=== PATIENT | male | born 1995 | race Caucasian/White ===

== ENCOUNTER 2019-12-06 20:24 | Emergency (ER) | payer OTHER, SELFPAY ==
[2019-12-06 20:31] VITALS: BP 129/78; PULSE 70; RESP 15; TEMP 37.1; O2SAT 99; BMI 25.1
[2019-12-06 20:58] LABS: Prothrombin Time 12.1 SECONDS (10.1-12.7)
--- NOTE | 2019-12-06 20:59 | ED_ITS ---
HPI - Abdominal Pain General Chief Complaint: Abdominal Pain Stated Complaint: sharp abd pains, vomiting Time Seen by Provider: 12/06/19 20:56 Source: patient Mode of arrival: Family Vehicle Limitations: no limitations History of Present Illness HPI narrative: 24-year-old male nonsmoker with benign medical history presents with a chief complaint of a few days of colicky type generalized abdominal pain with episodes of nausea and vomiting. He denies any provocation or palliation of his pain. He denies any history of the same. He has had no abdominal surgeries. He denies radiation of his pain but states it seems to wander through his belly. He does admit to some decreased bowel movements. He has had a decreased appetite. He denies any fever, shaking chills or other. MD complaint: abdominal pain Onset (ago): day(s) Pain Consistency: intermittent and colicky Location: diffuse Severity: moderate Quality: cramping and aching Radiation: none Migration to: no migration Relieving factors: nothing Exacerbating factors: nothing Associated symptoms: nausea and vomiting Related Data Previous Rx's Medication Instructions Recorded ondansetron 4 mg PO TID-QID PRN #10 tab 12/06/19 Allergies Allergy/AdvReac Type Severity Reaction Status Date / Time No Known Drug Allergies Allergy Verified 05/25/19 13:59 Review of Systems Constitutional Constitutional: Denies chills, Denies fatigue, Denies fever(s), Denies frequent falls, Denies lethargy and Denies weakness Eyes Eyes: Denies change in vision, Denies eye discharge, Denies irritation and Denies loss of vision ENT Ears, Nose, Mouth, and Throat: Denies change in voice, Denies dizziness, Denies neck pain, Denies sore throat and Denies throat swelling Cardiovascular Cardiovascular: Denies chest pain, Denies irregular heart rhythm, Denies lightheadedness, Denies palpitations, Denies dyspnea, Denies dyspnea on exertion and Denies orthopnea Respiratory Respiratory: Denies cough, Denies dyspnea, Denies dyspnea on exertion and Denies wheezing Gastrointestinal Gastrointestinal: Reports abdominal pain, Denies change in bowel habits, Denies diarrhea, Reports nausea and Reports vomiting Genitourinary Genitourinary: Denies hematuria, Denies flank pain, Denies urinary incontinence and Denies urinary urgency Musculoskeletal Musculoskeletal: Denies back pain, Denies muscle weakness, Denies neck pain, Denies numbness and Denies tingling Integumentary/Breasts Skin/Breast: Denies pruritus, Denies erythema, Denies rash and Denies wounds Neurologic Neurologic: Denies behavioral changes, Denies confusion, Denies dizziness, Rell es frequent falls, Denies loss of vision, Denies numbness, Denies tingling and Denies weakness Psychiatric Psychiatric: Denies anxiety, Denies behavioral changes, Denies confusion, Denies depression, Denies homicidal ideation and Denies suicidal ideation Endocrine Endocrine: Denies fatigue, Denies flushing and Denies palpitations Hematologic/Lymphatic Hematologic/Lymphatic: Denies easy bruising Allergic/Immunologic Allergic/Immunologic: Denies urticaria, Denies throat swelling and Denies wheezing Patient History Social History Smoking Status: Current every day smoker Smoking Status: Current every day smoker alcohol intake frequency: a few times a week Alcohol type: beer and hard liquor Substance Use Type: marijuana Exam Narrative Exam Narrative: GENERAL: [24] year old patient appears stated age. Well- nourished, well-developed patient, in mild distress. HEAD: Atraumatic. Normocephalic. EYES: Pupils equal round and reactive. Extraocular motions intact. No scleral icterus. No injection or drainage. ENT: Nose without bleeding, purulent drainage. Throat without erythema, tonsillar hypertrophy or exudate. Airway patent. NECK: Trachea midline. Non tender CARDIOVASCULAR: Regular rate and rhythm without murmurs, gallops, or rubs. RESPIRATORY: Clear to auscultation. Breath sounds equal bilaterally. No wheezes, rales, or rhonchi. GASTROINTESTINAL: Abdomen soft, non-tender, nondistended. EXTREMITIES: No edema or joint tenderness. BACK: Nontender without deformity or crepitance. No flank tenderness. NEURO: AOx3. SKIN: No rash or erythema of visible areas Initial Vital Signs Initial Vital Signs: Vital Signs Temperature 98.7 F 12/06/19 20:31 Pulse Rate 70 12/06/19 20:31 Respiratory Rate 15 12/06/19 20:31 Blood Pressure 129/78 12/06/19 20:31 Pulse Oximetry 99 12/06/19 20:31 Course Orders Ordered: ED Orders 12/06/19 20:35 EKG-12 Lead Stat 12/06/19 20:45 Complete Blood Count AUTO DIFF Stat Comprehensive Metabolic Panel Stat Lipase Stat Partial Thromboplastin Time Stat Prothrombin Time INR Stat 12/06/19 21:11 Urine Microscopic Stat 12/06/19 22:21 XR acute abdomen series Stat Sodium Chloride (Normal Saline 0.9%) 1,000 mls @ 1,000 mls/hr IV BOLUS ONE Stop: 12/06/19 23:20 Last Admin: 12/06/19 22:35 Dose: 1,000 mls/hr Documented by: MCKENZIE Discontinued Medications Al Hydrox/Mg Hydrox/Simethicone 20 ml/ Lidocaine HCl 15 ml 0 ml PO NOW ONE Stop: 12/06/19 22:22 Last Admin: 12/06/19 22:35 Dose: 35 ml Documented by: MCKENZIE Ondansetron HCl (Zofran Odt Prepack) 1 bottle MISC SEEINSTR ONE Stop: 12/06/19 22:40 Pantoprazole Sodium (Protonix) 40 mg IV NOW ONE Stop: 12/06/19 22:22 Last Admin: 12/06/19 22:36 Dose: 40 mg Documented by: MKCENZIE Vital Signs Vital signs: Vital Signs - 8 hr 12/06/19 20:31 12/06/19 22:14 Temperature 98.7 F Pulse Rate 70 63 Respiratory Rate 15 19 Blood Pressure 129/78 Blood Pressure [Left Arm] 106/57 L Pulse Oximetry 99 97 MDM - Abdominal Pain Lab Data Result diagrams: 12/06/19 20:45 12/06/19 20:45 Labs: Lab Results 12/06/19 12/06/19 12/06/19 Range/Units 20:45 20:45 20:45 WBC 12.4 H (4.5-11.0) X10^3/uL RBC 4.73 (4.5-5.9) X10^6/uL Hgb 15.1 (13.5-17.5) g/dL Hct 42.9 (41-53) % MCV 90.7 (80-100) fL MCH 31.9 (26-34) PG MCHC 35.2 (30-36) % RDW 12.2 (11.6-14.8) % Plt Count 223 (150-400) X10^3/uL Neut % (Auto) 79.0 H (50-75) % Lymph % (Auto) 13.6 L (25-40) % [place] % (Auto) 5.2 (3-14) % Eos % (Auto) 1.6 L (2-4) % Baso % (Auto) 0.6 (0-2) % Neut # (Auto) 9800 H (6803-7291) /uL Lymph # (Auto) 1700 (3750-5211) /uL [place] # (Auto) 600 (0-900) /uL Eos # (Auto) 200 (0-450) /uL Baso # (Auto) 100 (0-100) /uL PT 12.1 (10.1-12.7) SECONDS INR 1.0 (0.9-1.3) APTT 32 (26.4-36.2) SECONDS Sodium 140 (137-145) mmol/L Potassium 3.8 (3.4-5.1) mmol/L Chloride 102 (98-107) mmol/L Carbon Dioxide 26 (22-32) mmol/L BUN 18 (9-20) mg/dL Creatinine 0.80 (0.66-1.25) mg/dL Estimated GFR > 60.0 (>60) mL/min BUN/Creatinine Ratio 22.5 H (6-22) Glucose 107 H (70-100) mg/dL Calcium 9.6 (8.4-10.2) mg/dL Total Bilirubin 0.5 (0.2-1.3) mg/dL AST 30 (17-59) IU/L ALT 21 (<50) IU/L Alkaline Phosphatase 53 (38-126) U/L Total Protein 7.8 (6.3-8.2) g/dL Albumin 4.9 (3.5-5.0) g/dL Globulin 2.9 (1.7-4.1) g/dL Albumin/Globulin Ratio 1.7 (1.0-2.8) Lipase 53 (23-300) U/L Urine RBC (0-5/HPF) Urine WBC (0-5/HPF) Ur Squamous Epith Cells (0-5/HPF) Urine Bacteria (None) Urine Mucus (Negative) Ur Culture Indicated? 12/06/19 Range/Units 21:11 WBC (4.5-11.0) X10^3/uL RBC (4.5-5.9) X10^6/uL Hgb (13.5-17.5) g/dL Hct (41-53) % MCV (80-100) fL MCH (26-34) PG MCHC (30-36) % RDW (11.6-14.8) % Plt Count (150-400) X10^3/uL Neut % (Auto) (50-75) % Lymph % (Auto) (25-40) % [place] % (Auto) (3-14) % Eos % (Auto) (2-4) % Baso % (Auto) (0-2) % Neut # (Auto) (5719-0591) /uL Lymph # (Auto) (3022-9888) /uL [place] # (Auto) (0-900) /uL Eos # (Auto) (0-450) /uL Baso # (Auto) (0-100) /uL PT (10.1-12.7) SECONDS INR (0.9-1.3) APTT (26.4-36.2) SECONDS Sodium (137-145) mmol/L Potassium (3.4-5.1) mmol/L Chloride (98-107) mmol/L Carbon Dioxide (22-32) mmol/L BUN (9-20) mg/dL Creatinine (0.66-1.25) mg/dL Estimated GFR (>60) mL/min BUN/Creatinine Ratio (6-22) Glucose (70-100) mg/dL Calcium (8.4-10.2) mg/dL Total Bilirubin (0.2-1.3) mg/dL AST (17-59) IU/L ALT (<50) IU/L Alkaline Phosphatase (38-126) U/L Total Protein (6.3-8.2) g/dL Albumin (3.5-5.0) g/dL Globulin (1.7-4.1) g/dL Albumin/Globulin Ratio (1.0-2.8) Lipase (23-300) U/L Urine RBC 0-1/hpf (0-5/HPF) Urine WBC 0-1/hpf (0-5/HPF) Ur Squamous Epith Cells 0-1 /hpf (0-5/HPF) Urine Bacteria None seen (None) Urine Mucus 1+ H (Negative) Ur Culture Indicated? Cult not indicated Point of care testing: Urine Dip Bedside Urine Glucose Negative Bedside Urine Bilirubin + 1 Bedside Urine Ketone +/- 5 Urine Specific [place] 1.010 Bedside Urine Occult Blood - Negative Bedside Urine pH 8.0 Bedside Urine Protein +/- 15 Bedside Urine Urobilinogen +/- 1mg Bedside Urine Nitrite - Negative Bedside Urine Leukocytes - Negative Esterase Imaging Data Abdominal x-ray: My Impression: non obstructive bowel gas pattern MDM Narrative Medical decision making narrative: Multiple etiologies for patient's symptoms considered including: [viral intestinal infection vs. bowel obstruction vs. biliary disease (less likely given lack of lab findings and location of pain)] Patient's symptoms improved or duration of stay with above-stated therapies. Findings and discharge diagnosis discussed with patient/family followed by verbalization of understanding Return precautions discussed with patient/family whom verbalize understanding. Discharge Plan Departure Patient Disposition: Home Clinical Impression: Abdominal pain Qualifiers: Abdominal location: generalized Qualified Code(s): R10.84 - Generalized abdominal pain Instructions: DI for Abdominal Pain-Adult Activity Restrictions/Additional Instructions: *You have been diagnosed with [ abdominal pain, non-specific gas pattern ] *What to do: *Take medications as directed including over the counter Maalox, Simethicone (Gas-X) and prescription nausea medicine *Follow up with your primary care provider in 2-3 days, call for an appointment. Let them know you were seen in the Emergency Department and that we ask that you be seen in follow up *Return to ER if you should have any new, worsening or concerning symptoms 1. Drink plenty of fluids with frequent small sips. 2. For the next 24 hours a clear liquid diet is advised. After that please em ploy a brat diet which would include bananas, rice, apples, toast. 3. Please take medications as directed. 4. Please follow-up with your doctor in the next 1-2 days. Call the office for an appointment. 5. Please return to the emergency Department for any worsening or persistent symptoms, such as increasing pain or fever. Prescriptions: New ondansetron 4 mg tablet,disintegrating 4 mg PO TID-QID PRN (Reason: nausea and vomiting) Qty: 10 RF: 0
[2019-12-06 21:01] LABS: Add Manual Diff / Slide Review NO; Basophils Absolute Auto 100 /uL (0-100); Basophils Percent Auto 0.6 % (0-2); Eosinophils Absolute Auto 200 /uL (0-450); Eosinophils Percent Auto 1.6 % (2-4); Hematocrit 42.9 % (41-53); Hemoglobin 15.1 g/dL (13.5-17.5); Lymphocytes Absolute Auto 1700 /uL (1100-4500); Lymphocytes Percent Auto 13.6 % (25-40); Mean Corpuscular HGB Conc 35.2 % (30-36); Mean Corpuscular Hemoglobin 31.9 PG (26-34); Mean Corpuscular Volume 90.7 fL (80-100); Monocytes Absolute Auto 600 /uL (0-900); Monocytes Percent Auto 5.2 % (3-14); Neutrophils Absolute Auto 9800 /uL (1500-7000); PTT Partial Thromboplastin Tim 32 SECONDS (26.4-36.2); Platelet Count 223 X10^3/uL (150-400); Red Blood Cell Count 4.73 X10^6/uL (4.5-5.9); Red Cell Distribution Width 12.2 % (11.6-14.8); White Blood Cell Count 12.4 X10^3/uL (4.5-11.0)
[2019-12-06 21:03] LABS: Alanine Aminotransferase 21 IU/L (<50); Albumin 4.9 g/dL (3.5-5.0); Albumin Globulin Ratio 1.7 (1.0-2.8); Alkaline Phosphatase 53 U/L (38-126); Aspartate Aminotransferase 30 IU/L (17-59); BUN Creatinine Ratio 22.5 (6-22); Bilirubin Total 0.5 mg/dL (0.2-1.3); Blood Urea Nitrogen 18 mg/dL (9-20); Calcium 9.6 mg/dL (8.4-10.2); Carbon Dioxide 26 mmol/L (22-32); Chloride 102 mmol/L (98-107); Estimated Glomerular Filt Rate > 60.0 mL/min (>60); Globulin 2.9 g/dL (1.7-4.1); Glucose 107 mg/dL (70-100); HEMOLYSIS 16 (0-50); Lipase 53 U/L (23-300); Potassium 3.8 mmol/L (3.4-5.1); Sodium 140 mmol/L (137-145); Total Protein 7.8 g/dL (6.3-8.2)
[2019-12-06 21:29] LABS: Bacteria Urine None Seen
[2019-12-06 21:37] LABS: Culture Indicated Urine Cult Not Indicated; Mucus Urine 1+ (Negative); RBC Urine 0-1/HPF (0-5/HPF); Squamous Epithelial Cell Urine 0-1 /HPF (0-5/HPF); WBC Urine 0-1/HPF (0-5/HPF)
[2019-12-06 22:14] VITALS: BP 106/57; PULSE 63; RESP 19; O2SAT 97
--- NOTE | 2019-12-06 22:21 | DI.RAD.S_ITS ---
PROCEDURE: XR ACUTE ABDOMEN SERIES INDICATIONS: Abdominal pain TECHNIQUE: One view chest and two views of the abdomen were acquired. COMPARISON: None. FINDINGS: Surgical changes and devices: None. Chest: Lungs are clear. Heart size is normal. No pleural effusions. No pneumoperitoneum. Abdomen: Bowel gas pattern is nonspecific with scattered air fluid levels. No suspicious calcifications. Visualized solid organ contours appear normal. Bones: No suspicious bony lesions. IMPRESSION: Nonspecific bowel gas pattern. If the patient's symptoms persist or worsen, then CT scan abdomen/pelvis should be considered for further evaluation. Dictated by: Aliya Cortes MD, PhD on 12/07/2019 at 8:22 Approved by: Aliya Cortes MD, PhD on 12/07/2019 at 8:23
[2019-12-06] MEDS: MAG HYDROX/ALUMINUM/SIMETH SUS 20 ML, LIDOCAINE VISCOUS 2% 15 ML PO (22:35)
[2019-12-06] MEDS: SODIUM CHLORIDE 0.9% 1,000 ML 1000 ML IV (22:35)
[2019-12-06] MEDS: PANTOPRAZOLE 40 MG VIAL IV (22:36)
[2019-12-06 23:05] VITALS: BP 101/62; PULSE 59; RESP 15; O2SAT 98
== END 2019-12-06 23:36 | disposition home or self-care (01) ==
PROVIDERS: Emergency Provider Emergency Medicine
DX: R10.84 Generalized abdominal pain (principal)
CPT/HCPCS: 36415; 74022; 80053; 81003; 81015; 83690; 85025; 85610; 85730; 96361; 96374; 99284; C9113

== ENCOUNTER 2020-03-31 09:54 | Emergency (ER) | payer OTHER, SELFPAY ==
--- NOTE | 2020-03-31 09:58 | ED.GENADULT ---
HPI - General Adult General Chief complaint: Upper Respiratory Symptoms Stated complaint: stuffy nose possible allergies Time Seen by Provider: 03/31/20 09:58 Source: patient Mode of arrival: Ambulatory Limitations: no limitations History of Present Illness HPI narrative: 24-year-old male here for evaluation of sinus congestion, sneezing and coughing. He states that he feels like he has allergies. Has been on [id number] allergy medications without any improvement. He has missed the past couple days of work. He told his company about the symptoms that he is having and he/the company was concerned about COVID-19. Patient is here for COVID-19 test. He reports no shortness of breath. No coughing. No fevers. No recent travel. No known sick contacts. Related Data Previous Rx's Medication Instructions Recorded ondansetron 4 mg PO TID-QID PRN #10 tab 12/06/19 Allergies Allergy/AdvReac Type Severity Reaction Status Date / Time No Known Drug Allergies Allergy Verified 03/31/20 10:27 Review of Systems Constitutional Constitutional: Denies chills, Denies fever(s) and Denies headache(s) ENT Ears, Nose, Mouth, and Throat: Denies vertigo, Denies dizziness, Denies headache(s), Reports sinus pressure and Denies sore throat Cardiovascular Cardiovascular: Denies chest pain Respiratory Respiratory: Denies cough Gastrointestinal Gastrointestinal: Denies abdominal pain, Denies diarrhea and Denies nausea Integumentary/Breasts Skin/Breast: Denies lesions and Denies rash Neurologic Neurologic: Denies behavioral changes, Denies vertigo, Denies dizziness and Denies headache(s) Psychiatric Psychiatric: Denies behavioral changes Hematologic/Lymphatic Hematologic/Lymphatic: Denies easy bleeding and Denies easy bruising Patient History Medical History Healthy adult (Acute) Social History Smoking Status: Current every day smoker Smoking Status: Current every day smoker alcohol intake frequency: a few times a week Alcohol type: beer and hard liquor Substance Use Type: marijuana Exam Const General: cooperative and comfortable HENMT Ears: TM normal on the right and other (Left TM obscured by cerumen) Nose: external nose normal Mouth: oral mucosae normal Teeth and gingiva: dentition normal Resp Effort & Inspection: normal respiratory effort Auscultation: clear to auscultation bilaterally Cardio Rate: regular rate Rhythm: regular rhythm Skin Lesions: no lesions Rashes: no rashes Extrem General: normal to inspection and capillary refill normal Medical Decision Making MDM Narrative Medical decision making narrative: Informed patient be happy to test him for COVID-19 however this test does take 2-5 days to resolved. Informed him that he should isolate himself from others until the results came back. We will call for with positive a negative results. Patient was given return precautions. He expressed understanding and agreement. Discharge Plan Departure Patient Disposition: Home Clinical Impression: Congestion of nasal sinus Instructions: DI for Nasal Congestion Activity Restrictions/Additional Instructions: You were tested for COVID-19 today. This test takes anywhere from 2-5 days to results. We will call you for any positive or negative results. Until then recommend that you isolate yourself from others and wash your hands frequently. Contact her primary provider for follow-up. Prescriptions: No Action ondansetron 4 mg tablet,disintegrating 4 mg PO TID-QID PRN (Reason: nausea and vomiting) Qty: 10 RF: 0 Stand Alone Forms: Work Release Note
[2020-03-31 10:05] VITALS: BP 134/87; PULSE 81; RESP 18; TEMP 36.9; O2SAT 99; BMI 26.9
[2020-03-31 11:05] VITALS: BP 120/66; PULSE 75; RESP 16; O2SAT 99
[2020-04-01 15:56] LABS: COVID19 Sendout NOT DETECTED (Not Detect)
== END 2020-03-31 11:06 | disposition home or self-care (01) ==
PROVIDERS: Emergency Provider Emergency Medicine
DX: Z03.818 Encounter for observation for suspected exposure to other biological agents ruled out (principal); R09.81 Nasal congestion
CPT/HCPCS: 87635; 99281; 99282

== ENCOUNTER → 2020-08-12 11:27 | Outpatient (CLI) | payer OTHER, SELFPAY ==
[2020-08-13 14:45] LABS: COVID19 Sendout Not Detected (Not Detect)
== END ==
PROVIDERS: Visit Provider Nurse Practitioner
DX: Z11.59 Encounter for screening for other viral diseases (principal)
CPT/HCPCS: 87635

== ENCOUNTER 2021-08-26 16:23 | Emergency (ER) | payer OTHER, SELFPAY ==
[2021-08-26 16:38] VITALS: BP 136/74; PULSE 92; RESP 18; TEMP 37.3; O2SAT 96; BMI 25.1
[2021-08-26 16:58] LABS: COVID19 -Nasal RAPID POSITIVE (Negative)
[2021-08-26 17:02] VITALS: PULSE 90; O2SAT 96
[2021-08-26 17:30] VITALS: BP 123/81; PULSE 96; O2SAT 97
--- NOTE | 2021-08-26 17:59 | ED_ITS ---
HPI - URI/Sore Throat <CESAR Hsu - Last Filed: 08/26/21 18:04> General Chief Complaint: Upper Respiratory Symptoms Stated Complaint: Wheezy, congestion clear x7 days Time Seen by Provider: 08/26/21 16:41 Source: patient Mode of arrival: Ambulatory Limitations: no limitations History of Present Illness HPI Narrative: The patient is a 25-year-old male everyday smoker who presents with a chief complaint of nasal congestion, cough and transient low-grade fevers for 1 week. Patient states he has not vaccinated for COVID, does not know any specific contacts with anybody with COVID. States his daughter tested positive for RSV. Lives with his fiveritoe as well as 3 younger daughters. Denies any specific chest pain or shortness of breath, but feels ?short of breath with this mask.Denies any nausea vomiting or diarrhea. States he is coughing a lot, using DayQuil and NyQuil at home. Related Data Previous Rx's Medication Instructions Recorded sertraline 100 mg tablet 100 mg PO DAILY #90 tab 01/14/21 Allergies Allergy/AdvReac Type Severity Reaction Status Date / Time No Known Drug Allergies Allergy Verified 05/05/21 18:08 Review of Systems <CESAR Hsu - Last Filed: 08/26/21 18:04> Review of Systems Narrative: GENERAL: See HPI HEENT: Denies sinus pain, ear pain, sore throat, difficulty swallowing, dizziness. RESPIRATORY: See HPI CARDIOVASCULAR: Denies chest pain, palpitations, orthopnea, edema, GASTROINTESTINAL: Denies nausea, vomiting, abdominal pain, diarrhea, constipation, melena. : Denies dysuria, frequency, incontinence, hematuria, urinary retention. MUSCULOSKELETAL: denies weakness, joint pain, or bony pain SKIN: Denies rash, skin lesions, or other NEUROLOGIC: Denies weakness, headache, numbness, change in speech, confusion, seizures, incoordination. PSYCHIATRIC: No concerning psychosocial issues. 12 point review of systems is negative except for those stated above Patient History <CESAR Hsu - Last Filed: 08/26/21 18:04> Medical History (Updated 08/26/21 @ 17:43 by CESAR Hsu) Anxiety (~2014) Chicken pox Depression (~2014) Fractures (~2010) Healthy adult Well adult exam Family History (Updated 12/27/20 @ 20:52 by Marilee River) Father Sleep apnea Mental health problem Mother Anxiety Hypertension Mental health problem Grandfather History of heart disease Hypertension Hyperlipidemia Stroke History of blood clots Social History Smoking Status: Current every day smoker Smoking Status: Current every day smoker tobacco type: vaping alcohol intake frequency: holidays/special occasions only Alcohol type: beer and hard liquor Substance Use Type: marijuana Exam <CONRADO Hsu-BC - Last Filed: 08/26/21 18:04> Narrative Exam Narrative: GENERAL: This is a well-nourished, well-developed patient, in no acute distress HEAD: Atraumatic. Normocephalic. No temporal or scalp tenderness. EYES: Pupils equal round and reactive. Extraocular motions intact. No scleral icterus. No injection or drainage. ENT: Nose without bleeding, purulent drainage or septal hematoma. Throat without erythema, tonsillar hypertrophy or exudate. Uvula midline. Airway patent. Cerumen impaction noted left ear canal, right TM pearly kemp NECK: Trachea midline. No JVD or lymphadenopathy. Supple, nontender, no meningeal signs. CARDIOVASCULAR: Regular rate and rhythm RESPIRATORY: Clear to auscultation. Breath sounds equal bilaterally. No wheezes, rales, or rhonchi. Occasional cough. GASTROINTESTINAL: Abdomen soft, non-tender, nondistended. No hepato- splenomegaly, or palpable masses. No guarding. NEURO: AOx3. SKIN: No rash or erythema. Initial Vital Signs Initial Vital Signs: Vital Signs Temperature 99.1 F 08/26/21 16:38 Pulse Rate 92 H 08/26/21 16:38 Respiratory Rate 18 08/26/21 16:38 Blood Pressure 136/74 08/26/21 16:38 Pulse Oximetry 96 08/26/21 16:38 <Facundo Barone DO - Last Filed: 08/26/21 18:15> Initial Vital Signs Initial Vital Signs: Vital Signs Temperature 99.1 F 08/26/21 16:38 Pulse Rate 92 H 08/26/21 16:38 Respiratory Rate 18 08/26/21 16:38 Blood Pressure 136/74 08/26/21 16:38 Pulse Oximetry 96 08/26/21 16:38 Scores <Diane CESAR Martin - Last Filed: 08/26/21 18:04> GCS Zillah coma scale eye opening: Spontaneous [place] coma scale verbal response: Orientated Ellen coma scale motor response: Obey commands Ellen coma scale total score: 15 <Facundo OreillyDO americo - Last Filed: 08/26/21 18:15> GCS Ellen coma scale total score: 15 Course <Diane CESAR Martin - Last Filed: 08/26/21 18:04> Orders Ordered: ED Orders 08/26/21 16:50 COVID19 -Nasal swab/Pre-Proc Stat Vital Signs Vital signs: Vital Signs - 8 hr 08/26/21 16:38 08/26/21 17:02 08/26/21 17:30 Temperature 99.1 F Pulse Rate 92 H 90 96 H Respiratory Rate 18 Blood Pressure 136/74 123/81 Pulse Oximetry 96 96 97 <Facundo OreillyDO americo - Last Filed: 08/26/21 18:15> Orders Ordered: ED Orders 08/26/21 16:50 COVID19 -Nasal swab/Pre-Proc Stat Vital Signs Vital signs: Vital Signs - 8 hr 08/26/21 16:38 08/26/21 17:02 08/26/21 17:30 Temperature 99.1 F Pulse Rate 92 H 90 96 H Respiratory Rate 18 Blood Pressure 136/74 123/81 Pulse Oximetry 96 96 97 MDM - URI/Sore Throat <Diane CESAR Martin - Last Filed: 08/26/21 18:04> Lab Data Labs: Lab Results 08/26/21 Range/Units 16:50 SARS-CoV-2 (PCR) Positive H (Negative) MDM Narrative Medical decision making narrative: The patient is a 25-year-old unvaccinated male who presents with a chief complaint of cough and congestion. He test positive for COVID today. I discussed at length self quarantine, wearing masks etcetera I gave him a work note for 10 days from today. He is oxygenating well at 96-97% room air. He adamantly declines interested vaccination adamantly declines the idea of monoclonal antibodies as they are investigational at this point. I discussed at length discussing is positive diagnosis, quarantine at home etcetera discussed coming back to the ER for acute concerns. Patient has no questions or concerns upon discharge states understanding return precautions as well as follow-up care. He has been hemodynamically stable nontoxic throughout stay in the ER. He is oxygenating well, has go lung sounds, so will hold off on chest x-ray at this point time. <Facundo Barone DO - Last Filed: 08/26/21 18:15> Lab Data Labs: Lab Results 08/26/21 Range/Units 16:50 SARS-CoV-2 (PCR) Positive H (Negative) Discharge Plan Departure Patient Disposition: Home Clinical Impression: COVID-19 Instructions: DI for COVID-19 (Suspected or Confirmed ), How to Care for Someone with COVID-19, COVID-19: Testing and Tracing, Can COVID-19 be prevented? Activity Restrictions/Additional Instructions: Thank you for trusting us with your care today. As discussed, you tested positive for COVID-19. Please rest and push fluids. Please isolate at home. Please quarantine. Please wash your hands and high touch services, please wear a mask. You have to self quarantine for at least 10 days from today. It is reassuring that your oxygen level is good. Please use [id number] remedies as needed and able for symptom control. Please back to the emergency department for any acute concerns. Prescriptions: No Action sertraline 100 mg tablet 100 mg PO DAILY Qty: 90 RF: 3 Stand Alone Forms: Work Release Note <Facundo Barone DO - Last Filed: 08/26/21 18:15> Cosign ED Attending Cosignature Attestation: Dr Barone Co-Sign Statement: I was available for consultation during this patient's emergency department visit. This chart is signed by myself for administrative purposes only. I did not have direct contact with this patient during this visit. They were seen independently by the APC.
--- NOTE | 2021-08-26 18:20 | PC.NURSE ---
Pt called here to tell us that his girlfriend's employer is telling her that she needs to come to work. I explained that we can't control what her employer says and to follow the cdc guidlines. He also said how are we suppose to stop a pandemic if she is expected to go to work? I instructed him that the first step in helping to stop this is to get vaccinated. Pt said he would not get vaccinated. Pt once again asked me about his girlfriend having to go to work which I told him I can't control what her work is telling her. I repeated this to him multiple times. Pt began raising his voice at me and cussing which I then hung up on him after saying I will not be talked to like that. Pts girlfriend then called here. She immediately began raising her voice and cussing at me on the phone. Danna Martin who was sitting next to me was able to hear her through the phone. Pt was mad that we wouldn't give her advice over the phone,which I once again told her that I can't give her advice over the phone and I have no control over what her work is requiring her to do. She then said Your going to fucking tell me you can't fucking tell me what to do,we have 4 other people living in this house that have been exposed. I instructed her to follow the instructions that the patient was given, look up online at what the cdc recommends. She began yelling louder,cussing at me and refused to listen to anything that she was intructed to do. I then told her that I would not listen to this and hung up the phone.
--- NOTE | 2021-08-26 18:28 | PC.NURSE ---
answered ed phone and pts girlfriend yelled that she didnt appreciate being hung up on and medical advice given arent we a hospital she stated i just want to know if i need to quarantine my kids or myself and no one will answer my question am i supposed to work? explained that legally I cannot give medical advice over the phone but that if she had close contact with a covid positive person we advise contacting primary care or getting tested. female then screamed well then you better not ever ask my boyfriend to get vaccinated again if you do Ill tejal you all pt continued to scream Ill fucking tejal you you useless people while trying to answer Im sorry legally we cannot....Phone call disconnected from callers end
== END 2021-08-26 17:48 | disposition home or self-care (01) ==
PROVIDERS: Emergency Medicine; Emergency Provider Nurse Practitioner Family
DX: U07.1 COVID-19 (principal)
CPT/HCPCS: 87635; 99281; 99282; C9803

== ENCOUNTER 2023-03-16 06:07 | Emergency (ER) | payer OTHER, SELFPAY ==
[2023-03-16 06:11] VITALS: BP 121/77; PULSE 75; RESP 18; TEMP 36.6; O2SAT 98; BMI 25.1
--- NOTE | 2023-03-16 06:27 | ED_ITS ---
HPI - General Adult <Facundo Barone DO - Last Filed: 03/16/23 17:56> General Chief complaint: Abdominal Pain Stated complaint: throwing up, possible stomach ulcer Time Seen by Provider: 03/16/23 06:09 Source: patient and family Mode of arrival: Ambulatory History of Present Illness HPI narrative: Patient is a 27-year-old male who is here for evaluation of 2 days vomiting and upper abdominal pain and also diarrhea. Patient states that he has issues with upper abdominal pain in the past. He has been here in the emergency department in the past. Received what sounds like a GI cocktail which did help some of his symptoms however he is not seen his primary doctor or a GI doctor. He is not currently on any heartburn for acid related medications. He states 2 nights ago he woke up in the middle of the night and had vomiting and has also continued diarrhea. That happened again last evening which is what brought him here to the emergency department today. Related Data Previous Rx's Medication Instructions Recorded bupropion HCl 300 mg 24 hr tablet, 300 mg PO QAM #90 tabs 11/16/22 extended release famotidine 40 mg tablet (Pepcid) 40 mg PO DAILY #30 tabs 03/16/23 Allergies Allergy/AdvReac Type Severity Reaction Status Date / Time No Known Drug Allergies Allergy Verified 05/05/21 18:08 Review of Systems <Facundo Barone DO - Last Filed: 03/16/23 17:56> Constitutional Constitutional: Reports system reviewed and no additional complaints, except as documented Gastrointestinal Gastrointestinal: Reports system reviewed and no additional complaints, except as documented Genitourinary Genitourinary: Reports system reviewed and no additional complaints, except as documented Musculoskeletal Musculoskeletal: Reports system reviewed and no additional complaints, except as documented Integumentary/Breasts Skin/Breast: Reports system reviewed and no additional complaints, except as documented Patient History <Facundo Barone DO - Last Filed: 03/16/23 17:56> Medical History Anxiety (~2014) Chicken pox Depression (~2014) Fractures (~2010) Healthy adult Well adult exam Family History Father Sleep apnea Mental health problem Mother Anxiety Hypertension Mental health problem Grandfather History of heart disease Hypertension Hyperlipidemia Stroke History of blood clots Social History Smoking Status: Current every day smoker Smoking Status: Current every day smoker tobacco type: vaping alcohol intake frequency: holidays/special occasions only Alcohol type: beer and hard liquor Substance Use Type: marijuana Exam <Facundo Barone DO - Last Filed: 03/16/23 17:56> Initial Vital Signs Initial Vital Signs: Vital Signs Temperature 98 F 03/16/23 06:11 Pulse Rate 75 03/16/23 06:11 Respiratory Rate 18 03/16/23 06:11 Blood Pressure 121/77 03/16/23 06:11 Pulse Oximetry 98 03/16/23 06:11 Oxygen Delivery Method Room Air 03/16/23 06:11 Const General: cooperative, comfortable and No ill appearing HENMT Head: normal to inspection and normocephalic Resp Effort & Inspection: normal respiratory effort Auscultation: clear to auscultation bilaterally Cardio Rate: regular rate Rhythm: regular rhythm GI Inspection: normal to inspection and non-distended Palpation: soft, No firm and No tender Skin General: no rashes or lesions noted Neuro General: patient alert, patient awake and moves all extremities Extrem General: capillary refill normal <Diane Tony DO - Last Filed: 03/16/23 08:21> Initial Vital Signs Initial Vital Signs: Vital Signs Temperature 98 F 03/16/23 06:11 Pulse Rate 75 03/16/23 06:11 Respiratory Rate 18 03/16/23 06:11 Blood Pressure 121/77 03/16/23 06:11 Pulse Oximetry 98 03/16/23 06:11 Oxygen Delivery Method Room Air 03/16/23 06:11 Course <Facundo Barone DO - Last Filed: 03/16/23 17:56> Orders Ordered: Discontinued Medications Al Hydrox/Mg Hydrox/Simethicone (Mag Hydrox/Alum/Simeth 30 Ml Udc) 30 ml PO NOW ONE Stop: 03/16/23 06:52 Last Admin: 03/16/23 06:59 Dose: 30 ml Documented By: GC Al Hydrox/Mg Hydrox/Simethicone 20 ml/ Lidocaine HCl 15 ml 0 ml PO NOW ONE Stop: 03/16/23 06:25 Last Admin: 03/16/23 07:30 Dose: Not Given Documented By: NR Sodium Chloride (Normal Saline 0.9%) 1,000 mls @ 1,000 mls/hr IV BOLUS ONE Stop: 03/16/23 07:23 Last Infusion: 03/16/23 07:30 Dose: 0 mls/hr Documented By: Admin: 03/16/23 06:35 Dose: 1,000 mls/hr Documented By: SB Pantoprazole Sodium (Pantoprazole 40 Mg Vial) 40 mg IV NOW ONE Stop: 03/16/23 06:25 Last Admin: 03/16/23 06:37 Dose: 40 mg Documented By: SB Vital Signs Vital signs: Vital Signs - 8 hr 03/16/23 06:11 Temperature 98 F Pulse Rate 75 Respiratory Rate 18 Blood Pressure 121/77 Pulse Oximetry 98 Oxygen Delivery Method Room Air <Diane Tony DO - Last Filed: 03/16/23 08:21> Orders Ordered: Discontinued Medications Al Hydrox/Mg Hydrox/Simethicone (Mag Hydrox/Alum/Simeth 30 Ml Udc) 30 ml PO NOW ONE Stop: 03/16/23 06:52 Last Admin: 03/16/23 06:59 Dose: 30 ml Documented By: JOSE MARIA Al Hydrox/Mg Hydrox/Simethicone 20 ml/ Lidocaine HCl 15 ml 0 ml PO NOW ONE Stop: 03/16/23 06:25 Last Admin: 03/16/23 07:30 Dose: Not Given Documented By: NR Sodium Chloride (Normal Saline 0.9%) 1,000 mls @ 1,000 mls/hr IV BOLUS ONE Stop: 03/16/23 07:23 Last Infusion: 03/16/23 07:30 Dose: 0 mls/hr Documented By: Admin: 03/16/23 06:35 Dose: 1,000 mls/hr Documented By: FRANCESCA Pantoprazole Sodium (Pantoprazole 40 Mg Vial) 40 mg IV NOW ONE Stop: 03/16/23 06:25 Last Admin: 03/16/23 06:37 Dose: 40 mg Documented By: FRANCESCA Vital Signs Vital signs: Vital Signs - 8 hr 03/16/23 06:11 Temperature 98 F Pulse Rate 75 Respiratory Rate 18 Blood Pressure 121/77 Pulse Oximetry 98 Oxygen Delivery Method Room Air Medical Decision Making <Facundo Barone DO - Last Filed: 03/16/23 17:56> Lab Data 03/16/23 06:34 03/16/23 06:34 Labs: Lab Results 03/16/23 03/16/23 Range/Units 06:34 06:34 WBC 8.1 (4.5-11.0) X10^3/uL RBC 4.80 (4.5-5.9) X10^6/uL Hgb 15.2 (13.5-17.5) g/dL Hct 42.8 (41-53) % MCV 89.1 (80-100) fL MCH 31.7 (26-34) PG MCHC 35.6 (30-36) % RDW 12.7 (11.6-14.8) % Plt Count 207 (150-400) X10^3/uL Neut % (Auto) 83.1 H (50-75) % Lymph % (Auto) 7.8 L (25-40) % Dickinson % (Auto) 7.6 (3-14) % Eos % (Auto) 0.9 L (2-4) % Baso % (Auto) 0.6 (0-2) % Neut # (Auto) 6800 (2751-0423) /uL Lymph # (Auto) 600 L (4155-9884) /uL Dickinson # (Auto) 600 (0-900) /uL Eos # (Auto) 100 (0-450) /uL Baso # (Auto) 0 (0-100) /uL Sodium 139 (137-145) mmol/L Potassium 3.8 (3.4-5.1) mmol/L Chloride 101 (98-107) mmol/L Carbon Dioxide 27 (22-32) mmol/L BUN 18 (9-20) mg/dL Creatinine 1.01 (0.66-1.25) mg/dL Estimated GFR > 60 (>60) mL/min BUN/Creatinine Ratio 17.8 (6-22) Glucose 120 H (70-100) mg/dL Calcium 9.6 (8.4-10.2) mg/dL Total Bilirubin 1.2 (0.2-1.3) mg/dL AST 40 (17-59) IU/L ALT 44 (<50) IU/L Alkaline Phosphatase 66 (38-126) U/L Total Protein 8.1 (6.3-8.2) g/dL Albumin 5.0 (3.5-5.0) g/dL Globulin 3.1 (1.7-4.1) g/dL Albumin/Globulin Ratio 1.6 (1.0-2.8) Lipase 45 (23-300) U/L MDM Narrative Medical decision making narrative: Patient's vomiting and abdominal pain they brought him in today has been going on for the past 2 days however he has had upper abdominal pain for almost a year now. He is not had any specific follow-up for this. Labs were ordered. Will try to control his symptoms in his seems that a GI cocktail has been helpful in the past. Labs are pending. Care turned over to day provider to follow-up and disposition. <Diane Tony, - Last Filed: 03/16/23 08:21> Lab Data Labs: Lab Results 03/16/23 03/16/23 Range/Units 06:34 06:34 WBC 8.1 (4.5-11.0) X10^3/uL RBC 4.80 (4.5-5.9) X10^6/uL Hgb 15.2 (13.5-17.5) g/dL Hct 42.8 (41-53) % MCV 89.1 (80-100) fL MCH 31.7 (26-34) PG MCHC 35.6 (30-36) % RDW 12.7 (11.6-14.8) % Plt Count 207 (150-400) X10^3/uL Neut % (Auto) 83.1 H (50-75) % Lymph % (Auto) 7.8 L (25-40) % Dickinson % (Auto) 7.6 (3-14) % Eos % (Auto) 0.9 L (2-4) % Baso % (Auto) 0.6 (0-2) % Neut # (Auto) 6800 (4371-3938) /uL Lymph # (Auto) 600 L (8975-1622) /uL Dickinson # (Auto) 600 (0-900) /uL Eos # (Auto) 100 (0-450) /uL Baso # (Auto) 0 (0-100) /uL Sodium 139 (137-145) mmol/L Potassium 3.8 (3.4-5.1) mmol/L Chloride 101 (98-107) mmol/L Carbon Dioxide 27 (22-32) mmol/L BUN 18 (9-20) mg/dL Creatinine 1.01 (0.66-1.25) mg/dL Estimated GFR > 60 (>60) mL/min BUN/Creatinine Ratio 17.8 (6-22) Glucose 120 H (70-100) mg/dL Calcium 9.6 (8.4-10.2) mg/dL Total Bilirubin 1.2 (0.2-1.3) mg/dL AST 40 (17-59) IU/L ALT 44 (<50) IU/L Alkaline Phosphatase 66 (38-126) U/L Total Protein 8.1 (6.3-8.2) g/dL Albumin 5.0 (3.5-5.0) g/dL Globulin 3.1 (1.7-4.1) g/dL Albumin/Globulin Ratio 1.6 (1.0-2.8) Lipase 45 (23-300) U/L MDM Narrative Medical decision making narrative: Patient's vomiting and abdominal pain they brought him in today has been going on for the past 2 days however he has had upper abdominal pain for almost a year now. He is not had any specific follow-up for this. Labs were ordered. Will try to control his symptoms in his seems that a GI cocktail has been helpful in the past. Labs are pending. Care turned over to day provider to follow-up and disposition. 03/16/23 Mank: Patient signed out to myself by Dr. Barone. Patient comes in with complaint of acute on chronic upper abdominal pain and intermittent vomiting. Patient labs overall are reassuring with CBC, CMP and lipase. Patient received Maalox but viscous lidocaine is on back order so did not have a full GI cocktail. Had oral challenge here in the department which he successfully passed. Discussed need for follow up, possible EGD and recommend PPI currently. Patient also has multiple visits with his primary care physician for depression/anxiety and encouraged follow-up as last visit was over a year ago. Discharge Plan Departure Patient Disposition: Home Clinical Impression: Abdominal pain, Vomiting Instructions: DI for Vomiting -- Adult Activity Restrictions/Additional Instructions: Follow-up with your physician for recheck. Please call for an appointment. If you are having persistent discomfort and symptoms you might benefit from an EGD, he can follow up with General surgery or Gastroenterology for this. I would recommend starting to take a PPI or a Pepcid once daily for the next 4-6 weeks to see if this improves your symptoms. You may take Pepcid 40mg once daily until gone. Prescription sent to [facility]. Please return for fevers, persistent vomiting, vomiting up blood, lightheadedness or passing out, new chest pain or shortness of breath, black or bloody stools, rapidly worsening abdominal pain or other new or concerning changes. Prescriptions: New famotidine [Pepcid] 40 mg tablet 40 mg PO DAILY Qty: 30 0RF No Action bupropion HCl 300 mg tablet extended release 24 hr 300 mg PO QAM Qty: 90 1RF Referrals: Wale Nash MD [Physician] - Josiah Marquez MD [Physician] - Nile Gross DO [Primary Care Provider] - Stand Alone Forms: Patient Portal/API, Work Release Note
[2023-03-16] MEDS: SODIUM CHLORIDE 0.9% 1,000 ML 1000 ML IV (06:35)
[2023-03-16] MEDS: PANTOPRAZOLE 40 MG VIAL IV (06:37)
[2023-03-16 06:44] LABS: Add Manual Diff / Slide Review NO; Basophils Absolute Auto 0 /uL (0-100); Basophils Percent Auto 0.6 % (0-2); Eosinophils Absolute Auto 100 /uL (0-450); Eosinophils Percent Auto 0.9 % (2-4); Hematocrit 42.8 % (41-53); Hemoglobin 15.2 g/dL (13.5-17.5); Lymphocytes Absolute Auto 600 /uL (1100-4500); Lymphocytes Percent Auto 7.8 % (25-40); Mean Corpuscular HGB Conc 35.6 % (30-36); Mean Corpuscular Hemoglobin 31.7 PG (26-34); Mean Corpuscular Volume 89.1 fL (80-100); Monocytes Absolute Auto 600 /uL (0-900); Monocytes Percent Auto 7.6 % (3-14); Neutrophils Absolute Auto 6800 /uL (1500-7000); Neutrophils Percent Auto 83.1 % (50-75); Platelet Count 207 X10^3/uL (150-400); Red Cell Distribution Width 12.7 % (11.6-14.8); White Blood Cell Count 8.1 X10^3/uL (4.5-11.0)
[2023-03-16 06:56] LABS: Alanine Aminotransferase 44 IU/L (<50); Albumin Globulin Ratio 1.6 (1.0-2.8); Alkaline Phosphatase 66 U/L (38-126); Aspartate Aminotransferase 40 IU/L (17-59); BUN Creatinine Ratio 17.8 (6-22); Bilirubin Total 1.2 mg/dL (0.2-1.3); Blood Urea Nitrogen 18 mg/dL (9-20); Calcium 9.6 mg/dL (8.4-10.2); Carbon Dioxide 27 mmol/L (22-32); Chloride 101 mmol/L (98-107); Estimated Glomerular Filt Rate > 60 mL/min (>60); Globulin 3.1 g/dL (1.7-4.1); Glucose 120 mg/dL (70-100); HEMOLYSIS 15 (0-50); Lipase 45 U/L (23-300); Potassium 3.8 mmol/L (3.4-5.1); Sodium 139 mmol/L (137-145); Total Protein 8.1 g/dL (6.3-8.2)
[2023-03-16] MEDS: MAG HYDROX/ALUM/SIMETH 30 ML UDC PO (06:59)
[2023-03-16 08:32] VITALS: BP 107/68; PULSE 74; RESP 18; O2SAT 97
== END 2023-03-16 08:33 | disposition home or self-care (01) ==
PROVIDERS: Emergency Medicine; Emergency Provider Emergency Medicine; PCP Family Medicine
DX: R10.10 Upper abdominal pain, unspecified (principal); R11.10 Vomiting, unspecified
CPT/HCPCS: 36415; 80053; 83690; 85025; 96361; 96374; 99284; C9113

== ENCOUNTER 2023-10-13 09:43 | Emergency (ER) | payer SELFPAY ==
[2023-10-13 09:45] VITALS: BP 162/105; PULSE 66; RESP 16; TEMP 36.8; O2SAT 98; BMI 25.1
--- NOTE | 2023-10-13 09:52 | ED.GENADULT ---
HPI - General Adult General Chief complaint: Dental/Oral Stated complaint: tooth pain Time Seen by Provider: 10/13/23 09:48 Source: patient Mode of arrival: Ambulatory History of Present Illness HPI narrative: 28-year-old male here for evaluation of discomfort to his right upper back molars. He states that he is had discomfort there for the past several days but really yesterday morning he woke up in fairly significant discomfort. Has tried mouth washes at home without any improvement of symptoms. No problems breathing. He has a known cracked back lower molar. He tried to contact multiple dentist this morning but no one could see him. Related Data Previous Rx's Medication Instructions Recorded famotidine 40 mg tablet (Pepcid) 40 mg PO DAILY #30 tabs 03/16/23 ondansetron HCl 4 mg tablet 4 mg PO Q8H PRN nausea and 03/18/23 vomiting #30 tabs bupropion HCl 100 mg tablet,12 hr 100 mg PO BID #60 ea 05/20/23 sustained-release lorazepam 0.5 mg tablet 0.5 mg PO BID PRN anxiety #20 tabs 05/20/23 penicillin V potassium 500 mg 500 mg PO QID 7 days #28 tabs 10/13/23 tablet tramadol 50 mg tablet 50 mg PO Q8H PRN pain #10 tabs 10/13/23 Allergies Allergy/AdvReac Type Severity Reaction Status Date / Time No Known Drug Allergies Allergy Verified 10/13/23 09:48 Review of Systems ENT Ears, Nose, Mouth, and Throat: Reports system reviewed and no additional complaints, except as documented Respiratory Respiratory: Reports system reviewed and no additional complaints, except as documented Integumentary/Breasts Skin/Breast: Reports system reviewed and no additional complaints, except as documented Patient History Medical History Dyspepsia Well adult exam Depression (~2014) Fractures (~2010) Chicken pox Anxiety (~2014) Healthy adult Family History Father Sleep apnea Mental health problem Mother Anxiety Hypertension Mental health problem Grandfather History of heart disease Hypertension Hyperlipidemia Stroke History of blood clots Social History Smoking Status: Current every day smoker Smoking Status: Current every day smoker tobacco type: vaping alcohol intake frequency: holidays/special occasions only Alcohol type: beer and hard liquor Substance Use Type: marijuana Exam Initial Vital Signs Initial Vital Signs: Vital Signs Temperature 98.2 F 10/13/23 09:45 Pulse Rate 66 10/13/23 09:45 Respiratory Rate 16 10/13/23 09:45 Blood Pressure 162/105 H 10/13/23 09:45 Pulse Oximetry 98 10/13/23 09:45 Oxygen Delivery Method Room Air 10/13/23 09:45 HENMT Head: normal to inspection and normocephalic Face and sinus: normal facial exam Teeth and gingiva: fair dentition and other (Cracked right lower 2nd molar) Neck Lymphatic: No lymphadenopathy Resp Effort & Inspection: normal respiratory effort Skin General: no rashes or lesions noted Course Orders Ordered: Discontinued Medications Hydrocodone Bitart/Acetaminophen (Hydrocodone/Acet 5/325 Tablet) 1 tab PO NOW ONE Stop: 10/13/23 09:53 Vital Signs Vital signs: Vital Signs - 8 hr 10/13/23 09:45 Temperature 98.2 F Pulse Rate 66 Respiratory Rate 16 Blood Pressure 162/105 H Pulse Oximetry 98 Oxygen Delivery Method Room Air Medical Decision Making MDM Narrative Medical decision making narrative: Patient has potential issues with his dentition. He was advised that he needs to make definitive appointment with a dentist. There was no drainable abscess noted today. No foreign body noted today. Plan will be to treat him with antibiotics and pain medication. First dose of pain medicine given here in the ER. Will discharge home with return precautions. Discharge Plan Departure Patient Disposition: Home Clinical Impression: Pain, dental Instructions: DI for Dental Pain Activity Restrictions/Additional Instructions: It is important that you make an appointment with a dentist for definitive treatment. We are going to start you on antibiotics today. Please take them as directed. You can take Tylenol/ibuprofen for discomfort. Use the pain medicine you were given here for breakthrough pain. Return to the emergency department for new symptoms. Prescriptions: New penicillin V potassium 500 mg tablet 500 mg PO QID 7 Days Qty: 28 0RF tramadol 50 mg tablet 50 mg PO Q8H PRN (Reason: pain) Qty: 10 0RF No Action ondansetron HCl 4 mg tablet 4 mg PO Q8H PRN (Reason: nausea and vomiting) Qty: 30 5RF bupropion HCl 100 mg tablet sustained-release 12 hr 100 mg PO BID Qty: 60 2RF lorazepam 0.5 mg tablet 0.5 mg PO BID PRN (Reason: anxiety) Qty: 20 0RF famotidine [Pepcid] 40 mg tablet 40 mg PO DAILY Qty: 30 0RF Referrals: Nile Gross DO [Primary Care Provider] - Stand Alone Forms: Patient Portal/API
[2023-10-13] MEDS: HYDROCODONE/ACET 5/325 TABLET 1 TAB PO (09:57)
== END 2023-10-13 10:02 | disposition home or self-care (01) ==
PROVIDERS: Emergency Provider Emergency Medicine; PCP Family Medicine
DX: K08.89 Other specified disorders of teeth and supporting structures (principal)
CPT/HCPCS: 99283

== ENCOUNTER 2024-02-23 18:01 | Emergency (ER) | payer OTHER, SELFPAY ==
[2024-02-23 18:12] VITALS: BP 142/87; PULSE 88; RESP 15; TEMP 37.9; O2SAT 98; BMI 25.1
--- NOTE | 2024-02-23 18:30 | PC.NURSE ---
Pt was sitting in chair/[place]. Stood up and states Where can I get out of here. I'm not waiting 5 hours to talk to a doctor. I didn't think it would take this long. Informed pt that the department is very busy and we have informed the provider about him. Patient still wants to leave. Showed him how to leave department and let him know if he changes his mind, he can come back anytime.
== END 2024-02-23 18:35 | disposition home or self-care (01) ==
PROVIDERS: Emergency Provider Emergency Medicine; PCP Family Medicine
DX: R19.7 Diarrhea, unspecified (principal)
CPT/HCPCS: 99281

== ENCOUNTER 2024-06-06 13:06 | Emergency (ER) | payer OTHER, MEDICAID, SELFPAY ==
[2024-06-06 13:22] VITALS: BP 121/75; PULSE 98; RESP 16; TEMP 38.1; O2SAT 98; BMI 25.1
[2024-06-06 13:44] VITALS: TEMP 38.1
[2024-06-06] MEDS: ACETAMINOPHEN 325 MG TABLET 650 MG PO (13:44)
[2024-06-06 13:48] LABS: Strep Grp A by PCR Rapid Positive (Negative)
[2024-06-06 14:05] LABS: COVID19 -Nasal RAPID Negative (Negative)
--- NOTE | 2024-06-06 14:25 | ED_ITS ---
HPI - Nausea/Vomiting/Diarrhea General Chief complaint: Nausea/Vomiting/Diarrhea Stated complaint: strep throat Time Seen by Provider: 06/06/24 14:25 Source: patient Mode of arrival: Ambulatory History of Present Illness HPI Narrative: Patient here because he feels he has strep throat again. Symptoms started yesterday fever and sore throat. No trouble breathing no cough cold or congestion. Patient still has his tonsils. No known sick contacts. No respiratory distress. Patient has bilateral symmetric erythema of the posterior pharynx no exudates. No uvular shift. No tongue elevation no drooling no malocclusion or trismus. Related Data Previous Rx's Medication Instructions Recorded famotidine 40 mg tablet (Pepcid) 40 mg PO DAILY #30 tabs 03/16/23 ondansetron HCl 4 mg tablet 4 mg PO Q8H PRN nausea and 03/18/23 vomiting #30 tabs lorazepam 0.5 mg tablet 0.5 mg PO BID PRN anxiety #20 tabs 05/20/23 tramadol 50 mg tablet 50 mg PO Q8H PRN pain #10 tabs 10/13/23 bupropion HCl 100 mg tablet,12 hr 100 mg PO BID #60 ea 04/09/24 sustained-release amoxicillin 875 mg-potassium 1 tab PO BID #14 tabs 06/06/24 clavulanate 125 mg tablet Allergies Allergy/AdvReac Type Severity Reaction Status Date / Time No Known Drug Allergies Allergy Verified 02/23/24 18:11 Review of Systems Review of Systems Narrative: GENERAL: negative chills, fatigue, malaise, fever, sweats. HEENT: negative sinus pain, ear pain, positive sore throat RESPIRATORY: negative dyspnea, cough CARDIOVASCULAR: negative chest pain, palpitations GASTROINTESTINAL: negative nausea, vomiting, abdominal pain : negative dysuria, frequency, hematuria MUSCULOSKELETAL: negative muscle or bony pain SKIN: negative rash, skin lesions NEUROLOGIC: negative weakness, numbness ROS Unobtainable: All systems reviewed & are unremarkable except as noted in HPI and below Patient History Medical History Dyspepsia Well adult exam Depression (~2014) Fractures (~2010) Chicken pox Anxiety (~2014) Healthy adult Family History Father Sleep apnea Mental health problem Mother Anxiety Hypertension Mental health problem Grandfather History of heart disease Hypertension Hyperlipidemia Stroke History of blood clots Social History Smoking Status: Current every day smoker Smoking Status: Current every day smoker tobacco type: vaping alcohol intake frequency: other Alcohol type: hard liquor and other Substance Use Type: marijuana Exam Narrative Exam Narrative: GENERAL: in no distress, not toxic not dyspneic HEAD: Normocephalic. EYES: Pupils equal round ENT: Mucous membranes moist., there is bilateral symmetric pharyngeal erythema without exudate. No uvula shift. No exudates, no tongue elevation or drooling. No malocclusion or trismus. NECK: Trachea midline. CARDIOVASCULAR: Regular rate and rhythm RESPIRATORY: Clear to auscultation. Breath sounds equal bilaterally. No wheezes, rales, or rhonchi. GASTROINTESTINAL: Abdomen soft, non-tender EXTREMITIES: No gross deformities. BACK: No flank tenderness. NEURO: AOx4. SKIN: Warm and dry PSYCH: Not anxious, is cooperative Initial Vital Signs Initial Vital Signs: Vital Signs Temperature 100.6 F H 06/06/24 13:22 Pulse Rate 98 H 06/06/24 13:22 Respiratory Rate 16 06/06/24 13:22 Blood Pressure 121/75 06/06/24 13:22 Pulse Oximetry 98 06/06/24 13:22 Oxygen Delivery Method Room Air 06/06/24 13:22 Course Orders Ordered: ED Orders 06/06/24 13:34 Strep Grp A by PCR Rapid Stat Throat Culture Stat 06/06/24 13:40 COVID19 -Nasal RAPID Stat Discontinued Medications Acetaminophen (Acetaminophen 325 Mg Tablet) 650 mg PO NOW ONE Stop: 06/06/24 13:39 Last Admin: 06/06/24 13:44 Dose: 650 mg Documented By: ELA Amoxicillin/Clavulanate Potassium (Amoxicillin/Clav 875/125 Mg) 1 tab PO NOW ONE Stop: 06/06/24 14:26 Last Admin: 06/06/24 14:32 Dose: 1 tab Documented By: PATEL Vital Signs Vital signs: Vital Signs - 8 hr 06/06/24 13:22 06/06/24 13:44 Temperature 100.6 F H 100.6 F H Pulse Rate 98 H Respiratory Rate 16 Blood Pressure 121/75 Pulse Oximetry 98 Oxygen Delivery Method Room Air MDM - Nausea/Vomiting/Diarrhea Lab Data Labs: Lab Results 06/06/24 06/06/24 Range/Units 13:34 13:40 SARS-CoV-2 (PCR) Negative (Negative) Group A Strep (PCR) Positive H (Negative) [facility] Narrative Medical decision making narrative: Patient here because he feels he has strep throat again. Symptoms started yesterday fever and sore throat. No trouble breathing no cough cold or congestion. Patient still has his tonsils. No known sick contacts. No respiratory distress. Patient has bilateral symmetric erythema of the posterior pharynx no exudates. No uvular shift. No tongue elevation no drooling no malocclusion or trismus. After history and exam strep screen Tylenol Augmentin [facility] Medical records reviewed: No recent visit for this complaint Differential considered: Includes but not limited to strep throat viral pharyngitis tonsillar abscess retropharyngeal abscess Lab Test results independently reviewed as above. Pertinent findings: Positive strep screen Consultations: None indicated this time Treatments: Tylenol Augmentin Re-evaluations: 2:27 p.m. reviewed results with patient. Agrees treatment for strep throat with Augmentin. Work note provided. Airway intact. Return precautions reviewed. He desires discharge home. He does have a family doctor to follow up, Dr. Gross Discussion: Appropriate for discharge home exam is reassuring. Airway intact. No blood work or imaging indicated. Patient in no no no distress. Return precautions reviewed and he desires discharge home. Augmentin has been started. Tylenol given as well. Work note provided as well. Diagnosis: Strep throat Discharge Plan Departure Patient Disposition: Home Clinical Impression: Strep throat Instructions: DI for Strep Throat Activity Restrictions/Additional Instructions: You are being treated for strep throat. Augmentin, antibiotic has been started. Prescription provided. Please continue this tonight. It has been sent to your pharmacy. See family doctor in a week for re-evaluation. Work note has been provided for you. Keep well hydrated. Continue Tylenol ibuprofen for pain. Prescriptions: New amoxicillin-pot clavulanate 875-125 mg tablet 1 tab PO BID Qty: 14 0RF No Action bupropion HCl 100 mg tablet sustained-release 12 hr 100 mg PO BID Qty: 60 0RF Rx Instructions: DUE FOR APPT WITH PCP ondansetron HCl 4 mg tablet 4 mg PO Q8H PRN (Reason: nausea and vomiting) Qty: 30 5RF lorazepam 0.5 mg tablet 0.5 mg PO BID PRN (Reason: anxiety) Qty: 20 0RF famotidine [Pepcid] 40 mg tablet 40 mg PO DAILY Qty: 30 0RF tramadol 50 mg tablet 50 mg PO Q8H PRN (Reason: pain) Qty: 10 0RF Referrals: Nile Gross, [Primary Care Provider] - Stand Alone Forms: Patient Portal/API, Work Release Note
[2024-06-06] MEDS: AMOXICILLIN/CLAV 875/125 MG 1 TAB PO (14:32)
== END 2024-06-06 14:34 | disposition home or self-care (01) ==
PROVIDERS: Emergency Provider Emergency Medicine; PCP Family Medicine
DX: J02.0 Streptococcal pharyngitis (principal)
CPT/HCPCS: 87070; 87635; 87651; 99283

== ENCOUNTER → 2024-11-15 14:18 | Outpatient (CLI) | payer OTHER, SELFPAY ==
[2024-11-15 15:15] LABS: Add Manual Diff / Slide Review NO; Basophils Absolute Auto 0 /uL (0-100); Basophils Percent Auto 0.4 % (0-2); Eosinophils Absolute Auto 100 /uL (0-450); Eosinophils Percent Auto 0.9 % (2-4); Hematocrit 43.2 % (41-53); Hemoglobin 15.1 g/dL (13.5-17.5); Lymphocytes Absolute Auto 1500 /uL (1100-4500); Lymphocytes Percent Auto 16.1 % (25-40); Mean Corpuscular Hemoglobin 31.5 PG (26-34); Monocytes Absolute Auto 500 /uL (0-900); Monocytes Percent Auto 5.2 % (3-14); Neutrophils Absolute Auto 7300 /uL (1500-7000); Neutrophils Percent Auto 77.4 % (50-75); Platelet Count 252 X10^3/uL (150-400); Red Cell Distribution Width 12.9 % (11.6-14.8); White Blood Cell Count 9.4 X10^3/uL (4.5-11.0)
[2024-11-15 15:38] LABS: Alanine Aminotransferase 51 IU/L (<50); Albumin Globulin Ratio 1.7 (1.0-2.8); Alkaline Phosphatase 49 U/L (38-126); Aspartate Aminotransferase 38 IU/L (17-59); BUN Creatinine Ratio 14.7 (6-22); Blood Urea Nitrogen 15 mg/dL (9-20); Calcium 9.7 mg/dL (8.4-10.2); Carbon Dioxide 23 mmol/L (22-32); Chloride 105 mmol/L (98-107); Cholesterol 165 mg/dL (140-199); Estimated Glomerular Filt Rate > 60 mL/min (>60); Glucose 88 mg/dL (70-100); HDL Cholesterol 38 mg/dL (40-60); HEMOLYSIS < 15 (0-50); LDL Cholesterol Calculated 95 mg/dL (<100); Potassium 3.7 mmol/L (3.4-5.1); Sodium 141 mmol/L (137-145); Triglycerides 160 mg/dL (35-150)
[2024-11-15 16:10] LABS: TSH w/ Reflex to FT4 1.65 uIU/mL (0.47-4.68)
== END ==
PROVIDERS: PCP Family Medicine; Referring Provider Family Medicine; Visit Provider Family Medicine
DX: Z00.00 Encounter for general adult medical examination without abnormal findings (principal); F32.9 Major depressive disorder, single episode, unspecified
CPT/HCPCS: 36415; 80053; 80061; 84443; 85025